=== PATIENT | male | born 1975 | race African-American/Black ===

== ENCOUNTER 2020-02-28 14:46 | Emergency (ER) | payer MEDICAID, SELFPAY ==
[2020-02-28 15:00] VITALS: BP 112/82; PULSE 66; RESP 16; TEMP 36.7; O2SAT 98
--- NOTE | 2020-02-28 15:11 | ED.GENADULT ---
HPI - General Adult General Chief complaint: Recheck/Abnormal Lab/Rx Stated complaint: out of diabetic meds Time Seen by Provider: 02/28/20 15:04 Source: patient Limitations: no limitations History of Present Illness HPI narrative: Patient is a 44 y/o male complaining of running of his Metformin 3 day ago. He states that he has diabetes and he has been on Metformin 1 g twice a daily. He recently moved to this area and has no doctor. He also complains of feeling left ear clogged. He has no fever, chill, vomiting, diarrhea, chest pain or abdominal pain. Related Data Home Medications Medication Instructions Recorded Confirmed metformin 1,000 mg PO TID 02/28/20 Allergies Allergy/AdvReac Type Severity Reaction Status Date / Time No Known Allergies Allergy Verified 02/28/20 15:02 Review of Systems Constitutional: Constitutional: Denies chills, Denies fever(s), Denies headache(s) and Denies weakness Eyes: Eyes: Denies blurry vision ENT: Reports as per HPI, Denies headache(s) and Denies neck pain Comments: ear clogged Cardiovascular: Cardiovascular: Denies chest pain and Denies dyspnea Respiratory: Respiratory: Denies cough and Denies dyspnea Gastrointestinal: Gastrointestinal: Denies abdominal pain, Denies diarrhea, Denies nausea and Denies vomiting Genitourinary: Genitourinary: Denies hematuria and Denies dysuria Musculoskeletal: Musculoskeletal: Denies back pain and Denies neck pain Neurologic: Denies headache(s) and Denies weakness PMFSH Social History Social History Gender identity (if verbalized by the patient): Male Exam Const: General: no acute distress and well developed Orientation/consciousness: oriented to person, oriented to place, oriented to time and patient oriented x3 HENMT: Head: normocephalic Ears: external ears normal and other (bilateral cerum impaction) General nose exam: Normal external nose present Eyes: General: appearance normal, both eyes and all related structures Conjunctivae: conjunctivae normal Neck: Neck: normal visual inspection and full ROM Chest: Chest palpation & inspection: normal inspection of the chest and no tenderness Resp: Effort & Inspection: normal respiratory effort Auscultation: clear to auscultation bilaterally Cardio: Rate: regular rate Rhythm: regular rhythm GI: GI Palp: No abdominal tenderness and Yes Soft to palpation Skin: General skin exam: normal color and turgor normal Neuro: General: oriented to person, oriented to place, oriented to time and patient oriented x3 Cognition (Neuro): normal cognition Extrem: General: normal to inspection, full ROM and no pedal edema Psych: Appearance: grossly normal Mental Status: mental status grossly normal Affect: normal affect Course Vital Signs Vital signs: Vital Signs Temperature 36.7 C 02/28/20 15:00 Pulse Rate 66 02/28/20 15:00 Respiratory Rate 16 02/28/20 15:00 Blood Pressure 112/82 02/28/20 15:00 Pulse Oximetry 98 02/28/20 15:00 Temperature 36.7 C 02/28/20 15:00 Pulse Rate 80 02/28/20 16:10 Respiratory Rate 18 02/28/20 16:10 Blood Pressure 122/80 02/28/20 16:10 Pulse Oximetry 98 02/28/20 16:10 Medical Decision Making Vital Signs Vital Signs: Vital Signs Temperature 36.7 C 02/28/20 15:00 Pulse Rate 66 02/28/20 15:00 Respiratory Rate 16 02/28/20 15:00 Blood Pressure 112/82 02/28/20 15:00 Pulse Oximetry 98 02/28/20 15:00 Temperature 36.7 C 02/28/20 15:00 Pulse Rate 80 02/28/20 16:10 Respiratory Rate 18 02/28/20 16:10 Blood Pressure 122/80 02/28/20 16:10 Pulse Oximetry 98 02/28/20 16:10 Lab Data Result diagrams: 02/28/20 15:27 02/28/20 15:27 Labs: Lab Results 02/28/20 02/28/20 02/28/20 Range/Units 15:27 15:27 15:27 WBC 7.0 (4.5-10.0) K/mm3 RBC 4.82 (4.6-6.20) M/mm3 Hgb 14.3 (14.0-18.0) g/dL Hct
[2020-02-28 15:37] LABS: Basophils Percent Auto 0.6 % (0.2-1.2); Eosinophils Absolute Auto 0.5 K/mm3 (0-0.3); Eosinophils Percent Auto 6.7 % (0-4.4); Hematocrit 40.9 % (42.0-52.0); Hemoglobin 14.3 g/dL (14.0-18.0); Immature Granulocyte Absolute 0.03 K/mm3 (0.00-0.031); Immature Granulocyte Percent A 0.4 % (0-0.5); Lymphocytes Absolute Auto 2.89 K/mm3 (0.9-3.2); Lymphocytes Percent Auto 41.4 % (18.3-44.2); Mean Corpuscular Hemoglobin 29.7 pg (26-34); Mean Corpuscular Volume 84.9 fl (80-100); Mean Platelet Volume 10.5 fl (7.4-10.4); Monocytes Absolute Auto 0.7 K/mm3 (0.1-0.6); Monocytes Percent Auto 9.7 % (2.6-8.5); Neutrophils Absolute Auto 2.9 K/mm3 (1.3-6.7); Neutrophils Percent Auto 41.2 % (45.5-73.1); Platelet Count Result 348 k/mm3 (150-375); Red Blood Count 4.82 M/mm3 (4.6-6.20); Red Cell Distribution Width 13.4 % (11.5-14.5)
[2020-02-28 15:40] LABS: Add Urine Microscopic? YES; Appearance Urine Clear (Clear); Bilirubin Urine Negative (Negative); Blood Urine Negative (Negative); Color Urine Yellow (Yellow); Glucose Urine UA 2+ mg/dL (Negative); Ketones Urine Negative (Negative); Leukocyte Esterase Ur Negative LEU/UL (Negative); Mucus Urine Rare /lpf; Nitrate Urine Negative (Negative); Protein Urine Negative (Negative); RBC Urine 0-2 /hpf (0-2); Specific Grav Ur 1.019 (1.001-1.035); Urobilinogen Urine Negative mg/dL (<2.0)
[2020-02-28 15:48] LABS: Alanine Aminotransferase 22 U/L (4-50); Albumin Level 4.1 g/dL (3.5-5.1); Alkaline Phosphatase 78 U/L (38-126); Anion Gap 6 mmol/L (8-16); Aspartate Amino Transferase 24 U/L (17-59); Bilirubin,Total 0.1 mg/dL (0.2-1.3); Blood Urea Nitrogen 12 mg/dL (9-20); Calcium 9.2 mg/dL (8.4-10.2); Carbon Dioxide 24 mmol/L (22-30); Chloride 108 mmol/L (98-107); Estimated CRCL calculation 106 ml/min; Estimated Glomerular Filt Rate > 60; Glucose 146 mg/dL (75-110); Potassium 4.2 mmol/L (3.4-5.0); Sodium 138 mmol/L (137-145)
[2020-02-28 16:10] VITALS: BP 122/80; PULSE 80; RESP 18; O2SAT 98
== END 2020-02-28 16:11 | disposition home or self-care (01) ==
PROVIDERS: Emergency Provider Emergency Medicine
DX: E11.9 Type 2 diabetes mellitus without complications (principal); H61.23 Impacted cerumen, bilateral; Z79.84 Long term (current) use of oral hypoglycemic drugs
CPT/HCPCS: 36415; 80053; 81001; 85025; 87086; 99283